=== PATIENT | female | born 1955 | race Two or more races ===

== ENCOUNTER 2018-05-16 18:15 | Emergency (ER) | payer SELFPAY ==
[~2018-05-16] VITALS: Ht 162.6 cm; Wt 85.0 kg
[2018-05-16] MEDS ORDERED: EPINEPHRINE 1 MG/ML, 1ML ONE (18:20)
[2018-05-16] MEDS ORDERED: FAMOTIDINE 20 MG/2 ML ONE (18:20)
[2018-05-16] MEDS ORDERED: PLEASE ENTER HEIGHT AND WEIGHT MC SCH (18:30)
[2018-05-16] MEDS ORDERED: methylPREDNISolone SOD SUCC 125 MG/2 ML IVPush ONE (18:30)
[2018-05-16] MEDS ORDERED: FAMOTIDINE 20 MG/2 ML IVPush ONE (18:30)
[2018-05-16] MEDS ORDERED: SODIUM CHLORIDE 0.9% 1,000ML IVBOLUS ONE (18:30)
[2018-05-16] MEDS ORDERED: PLEASE ENTER ALLERGIES MC SCH (18:30)
[2018-05-16] MEDS ORDERED: EPINEPHRINE 1 MG/ML, 1ML SQ ONE (18:30)
[2018-05-16] MEDS ORDERED: methylPREDNISolone SOD SUCC 125 MG/2 ML ONE (18:31)
[2018-05-16 18:40] LABS: BASOPHILS # (AUTO) 0.03 x10^3/uL (0-0.1); BASOPHILS % (AUTO) 0 % (0-1); EOSINOPHILS # (AUTO) 0.12 x10^3/uL (0-0.4); EOSINOPHILS % (AUTO) 1 % (1-7); LYMPHOCYTES # (AUTO) 3.99 x10^3/uL (1-3.4); LYMPHOCYTES % (AUTO) 44 % (22-44); MD NO; MEAN CORPUSCULAR HGB CONC 33.5 g/dL (32.4-35.8); MEAN CORPUSCULAR VOLUME 86.5 fL (80-100); MEAN PLATELET VOLUME 8.9 fL (7.4-10.4); MONOCYTES # (AUTO) 0.36 x10^3/uL (0.2-0.8); MONOCYTES % (AUTO) 4 % (2-9); NEUTROPHILS # (AUTO) 4.65 x10^3/uL (1.8-6.8); NEUTROPHILS % (AUTO) 51 % (42-75); PLATELET COUNT 351 x10^3/uL (130-400); RED BLOOD COUNT 5.53 x10^6/uL (3.82-5.3); RED CELL DISTRIBUTION WIDTH 13.9 % (9.6-15.2)
[2018-05-16 18:47] LABS: ALBUMIN 3.2 g/dL (3.4-5.0); ANION GAP 7 mmol/L (5-15); CALCIUM 8.8 mg/dL (8.5-10.1); CHLORIDE 103 mmol/L (98-107); CREATININE 1.05 mg/dL (0.55-1.02)
[2018-05-16 22:04] VITALS: BP 114/60
== END 2018-05-16 22:06 | disposition home or self-care (01) ==
LOC: ED 22:00
DX: T63.461A Toxic effect of venom of wasps, accidental (unintentional), initial encounter (principal); Y92.89 Other specified places as the place of occurrence of the external cause; W57.XXXA Bitten or stung by nonvenomous insect and other nonvenomous arthropods, initial encounter; Y93.89 Activity, other specified; Y99.8 Other external cause status; I10 Essential (primary) hypertension; E11.9 Type 2 diabetes mellitus without complications
CPT/HCPCS: 36415; 71045; 80048; 82040; 85025; 93005; 96361; 96372; 96374; 96375; 99291; J0171; J2930; J7030; S0028